=== PATIENT | male | born 1965 | race Caucasian/White ===

== ENCOUNTER 2017-02-25 10:09 | Emergency (ER) | payer BC ==
[2017-02-25 10:26] VITALS: BP 129/75
--- NOTE | 2017-02-25 10:44 | UC ---
Cardiac HPI - HPI Summary HPI Summary: The patient comes in today for: 1. Chest pressure: Onset: 6 days. Palliative/provocative: Warm rice bags helped the back pain. Exertion does not make it worse even during garden/yard work. Quality: Pressure. Region: Retrosternal with radiation to the back. Severity: 8/10 before, but 5/10 now. Time: Constant. Associated symptoms: CAD risk factors: Previous cardiac disease: "inverted p wave" but testing was negative. DM: None. HTN: None. Cholesterol: "borderline high." Smoker: NOne. Family history: Uncle had SC in his 30's. Mother had open heart surgery "bypass"? * - History of Current Complaint Chief Complaint: UCChestPain Stated Complaint: CHEST/LEFT ARM PAIN Time Seen by Provider: 02/25/17 10:20 Hx Obtained From: Patient - Allergy/Home Medications Allergies/Adverse Reactions: Allergies Allergy/AdvReac Type Severity Reaction Status Date / Time No Known Allergies Allergy Verified 02/25/17 10:21 Home Medications: Home Medications Tadalafil [Cialis] 2.5 mg PO DAILY 02/25/17 [History Confirmed 02/25/17] PMH/Surg Hx/FS Hx/Imm Hx Previously Healthy: No - ED - Surgical History Surgical History: Yes Surgery Procedure, Year, and Place: appy. left knee ACL/MCL reconstruction. T& A - Family History Known Family History: Positive: Cardiac Disease, Hypertension - Social History Occupation: Employed Full-time Alcohol Use: Occasionally Substance Use Type: None Smoking Status (MU): Never Smoked Tobacco Review of Systems Constitutional: Negative Skin: Negative Eyes: Negative ENT: Negative Respiratory: Negative Cardiovascular: Chest Pain Gastrointestinal: Negative Genitourinary: Negative All Other Systems Reviewed And Are Negative: Yes Physical Exam Triage Information Reviewed: Yes Appearance: Well-Appearing, No Pain Distress, Well-Nourished Vital Signs: Initial Vital Signs Temp 98.3 F 02/25/17 10:13 Pulse 59 02/25/17 10:13 Resp 16 02/25/17 10:13 BP 129/75 02/25/17 10:13 Pulse Ox 100 02/25/17 10:13 Vital Signs Reviewed: Yes Eyes: Positive: Conjunctiva Clear. Negative: Discharge ENT: Positive: Hearing grossly normal. Negative: Pharyngeal erythema, Nasal congestion, Nasal drainage, TM bulging, TM dull, TM red, Tonsillar swelling, Tonsillar exudate Dental: Negative: Gross Decay/Caries @, Dental Fracture @ Neck: Positive: Supple, Nontender, No Lymphadenopathy. Negative: Nuchal Rigidity Respiratory: Positive: Lungs clear, No respiratory distress, No accessory muscle use. Negative: Crackles, Wheezing Cardiovascular: Positive: RRR, No Murmur Abdomen Description: Positive: Nontender, No Organomegaly, Soft. Negative: Distended, Guarding Musculoskeletal: Positive: Strength Intact, ROM Intact, No Edema, Other: - No chest tenderness. Neurological: Positive: Alert, Muscle Tone Normal Psychological: Positive: Age Appropriate Behavior, Consolable Skin: Negative: rashes, breakdown - Assessment/Plan Course Of Treatment: Patient told of his negative EKG, but still my recommendation was to go to [facility] for chest pain evaluation. He agreed, but was going by car. - Clinical Impression Provider Diagnoses: Chest pain - Physician Notifications Discussed Patient Care With: Toya Valencia Time Discussed With Above Provider: 10:50 Discharge - Discharge Plan Condition: Stable Disposition: AGAINST MEDICAL ADVICE Additional Instructions: Patient is driving over to the [facility] ER.
[2017-02-25] MEDS ORDERED: Aspirin Low Dose CHEW TAB* 81 MG PO ONE (10:48)
== END 2017-02-25 11:03 | disposition left against medical advice (07) ==
LOC: UCCORT 10:09
DX: R07.89 Other chest pain (principal)
CPT/HCPCS: 93005; 99212; A9270-GY; G0463

== ENCOUNTER 2018-04-09 11:23 | Emergency (ER) | payer BC ==
[2018-04-09] MEDS ORDERED: Tetracaine 0.5% OPTH.SOL 15ML* BTL ONE (11:54)
[2018-04-09] MEDS ORDERED: Fluorescein Sod TOPICAL 0.6* 0.6 MG TEST OPHTHALMIC ONE (11:59)
[2018-04-09 12:14] VITALS: BP 129/79
--- NOTE | 2018-04-09 12:15 | UC ---
Eye Complaint HPI - HPI Summary HPI Summary: I, Francakatelin Callejas, scribed for Live Jordan MD. Pt is a 53 y/o M who presents to [facility] c/o R eye irritation. His contacts had been soaking in peroxide instead of saline solution all night, then put he them in this morning, unknowingly. This morning, after putting the contact in, he attempted to irrigate the eye at home, accidentally using peroxide for that as well. States that he is unable to open the eye, secondary to pain. On triage, pain is ranked 10/10 and characterized as burning. States that only his R eye is bothersome, denying any pain in the L eye. Additionally c/o photophobia. - History of Current Complaint Chief Complaint: UCEye Stated Complaint: EYE ISSUE Hx Obtained From: Patient Onset/Duration: Lasting Hours, Still Present Severity Currently: Severe Pain Intensity: 10 Pain Scale Used: 0-10 Numeric Aggravating Factor(s): Light Alleviating Factor(s): Nothing Associated Signs And Symptoms: Positive: Photophobia Related History: Other - Contacts soaked in peroxide - Allergies/Home Medications Allergies/Adverse Reactions: Allergies Allergy/AdvReac Type Severity Reaction Status Date / Time No Known Allergies Allergy Verified 04/09/18 11:53 Home Medications: Home Medications ALPRAZolam TAB* [Xanax TAB*] 0.25 mg PO BID PRN 04/09/18 [History Confirmed ] Ibuprofen 600 mg 04/09/18 [History] diphenhydrAMINE HCl [Allergy Medication] 04/09/18 [History] PMH/Surg Hx/FS Hx/Imm Hx - Additional Past Medical History Additional PMH: PMHx: Jacobs's palsy, hay fever - Surgical History Surgical History: Yes Surgery Procedure, Year, and Place: appy. left knee ACL/MCL reconstruction. T& A - Family History Known Family History: Positive: Cardiac Disease, Hypertension - Social History Alcohol Use: Occasionally Substance Use Type: None Smoking Status (MU): Never Smoked Tobacco Review of Systems Constitutional: Negative Skin: Negative Eyes: Photophobia, Other - R eye pain ENT: Negative Respiratory: Negative Cardiovascular: Negative Gastrointestinal: Negative Genitourinary: Negative Motor: Negative Neurovascular: Negative Musculoskeletal: Negative Neurological: Negative Psychological: Negative All Other Systems Reviewed And Are Negative: Yes Physical Exam - Summary Physical Exam Summary: Appearance: Well-appearing, Well-nourished Skin: Warm Eyes: No discrete fluorescein uptake under fluorescein exam on right eye, bilateral scleral injection R>L ENT: Normal Neck: Supple, nontender Respiratory: Clear to auscultation Cardiovascular: Regular rate, regular rhythm. Normal S1, S2. Musculoskeletal: Normal, Strength/ROM Intact Neurological: Normal, A&Ox3 Psychiatric: Normal General: Moderate pain distress Triage Information Reviewed: Yes Vital Signs: Initial Vital Signs Temp 98.6 F 04/09/18 12:05 Pulse 64 04/09/18 12:05 Resp 16 04/09/18 12:05 BP 129/79 04/09/18 12:05 Pulse Ox 97 04/09/18 12:05 Vital Signs Reviewed: Yes Re-Evaluation - Re-Evaluation First Eval Re-Evaluation Time: 12:25 Comment: Discussed discharge and follow up plan with Dr. Plunkett today. Eye Complaint Course/Dx - Course Course Of Treatment: Called Dr Plunkett who is event operations manager, discussed findings - possible acute keratitis and diffuse corneal abrasion. Recommended Cipro opthalmic and Dr plunkett requested that pt come in to his office at 145pm to place a bandage contact on his eye. - Differential Dx/Diagnosis Differential Diagnosis/HQI/PQRI: Conjunctivitis, Corneal Abrasion, Keratitis Provider Diagnoses: Acute keratitis due to hydrogen peroxide exposure - Physician Notification/Consults Discussed Patient Care With: Leon Plunkett Time Discussed With Above Provider: 12:20 Instructed by Provider To: Other - Will see the pt in his office at 1345 today. Discharge - Sign-Out/Discharge Documenting (check all that apply): Patient Departure - Discharge - Discharge Plan Condition: Stable Disposition: HOME Patient Education Materials: Corneal Abrasion (ED) Referrals: Leon Plunkett MD [Medical Doctor] - 04/09/18 (You have an appointment with Dr. Plunkett today at 1:45 p.m. ) - Billing Disposition and Condition Condition: STABLE Disposition: Home
[2018-04-09] MEDS ORDERED: HYDROcodone/ACETAMIN 5-325 MG* 1 TAB PO ONE (12:17)
[2018-04-09] MEDS ORDERED: Ciprofloxacin 0.3% OPTH.SOL* 2.5 ML BTL BOTH EYES ONE (12:28)
== END 2018-04-09 13:41 | disposition home or self-care (01) ==
LOC: UCEAST 11:23
DX: H16.9 Unspecified keratitis (principal); T75.89XA Other specified effects of external causes, initial encounter; X58.XXXA Exposure to other specified factors, initial encounter; Y92.9 Unspecified place or not applicable
CPT/HCPCS: 99213; A9270-GY; G0463